=== PATIENT | male | born 1960 | race Caucasian/White ===

== ENCOUNTER 2019-08-26 17:36 | Emergency (ER) | payer SELFPAY ==
[~2019-08-26] VITALS: Ht 175.3 cm; Wt 80.9 kg
--- NOTE | 2019-08-26 19:28 | NUR ---
PT NOT IN LOBBY AT THIS TIME
--- NOTE | 2019-08-26 19:45 | NUR ---
PT TO ROOM FROM LOBBY
--- NOTE | 2019-08-26 19:53 | NUR ---
PT WITH DIFFICULTY CHANGING INTO A GOWN. I OFFERED TO HELP, PT REFUSED HELP.
[2019-08-26 20:12] LABS: BASOPHILS # (AUTO) 0.05 x10^3/uL (0-0.1); BASOPHILS % (AUTO) 1 % (0-1); EOSINOPHILS # (AUTO) 0.23 x10^3/uL (0-0.4); EOSINOPHILS % (AUTO) 3 % (1-7); LYMPHOCYTES # (AUTO) 2.46 x10^3/uL (1-3.4); LYMPHOCYTES % (AUTO) 29 % (22-44); MD NO; MEAN CORPUSCULAR HGB CONC 34.3 g/dL (33.2-36.2); MEAN CORPUSCULAR VOLUME 99.2 fL (81-97); MEAN PLATELET VOLUME 8.7 fL (7.4-10.4); MONOCYTES # (AUTO) 0.74 x10^3/uL (0.2-0.8); MONOCYTES % (AUTO) 9 % (2-9); NEUTROPHILS # (AUTO) 5.06 x10^3/uL (1.8-6.8); NEUTROPHILS % (AUTO) 59 % (42-75); PLATELET COUNT 189 x10^3/uL (130-400); RED BLOOD COUNT 5.16 x10^6/uL (4.38-5.82); RED CELL DISTRIBUTION WIDTH 13.5 % (9.4-14.8)
[2019-08-26 20:21] LABS: ANION GAP 5 mmol/L (5-15); CALCIUM 8.7 mg/dL (8.5-10.1); CHLORIDE 108 mmol/L (98-107)
[2019-08-26 20:24] LABS: ALANINE AMINOTRANSFERASE 31 U/L (12-78); ALKALINE PHOSPHATASE 119 U/L (45-117); BILIRUBIN,TOTAL 0.7 mg/dL (0.2-1.0); TOTAL PROTEIN 7.4 g/dL (6.4-8.2)
[2019-08-26 21:12] VITALS: BP 166/96
[2019-08-26] MEDS ORDERED: CEPHALEXIN 500 MG CAPSULE ONE (21:19)
[2019-08-26] MEDS ORDERED: SULFAMETH./TRIMETHOPRIM DS 800MG/160MG TABLET ONE (21:19)
[2019-08-26] MEDS ORDERED: CEPHALEXIN 500 MG CAPSULE PO ONE (21:30)
[2019-08-26] MEDS ORDERED: SULFAMETH./TRIMETHOPRIM DS 800MG/160MG TABLET PO ONE (21:30)
== END 2019-08-26 21:42 | disposition home or self-care (01) ==
LOC: ED 18:36
DX: L03.116 Cellulitis of left lower limb (principal)
CPT/HCPCS: 36415; 80053; 85025; 99284

== ENCOUNTER → 2019-11-03 | Outpatient (CLI) | payer OTHER | END | disposition home or self-care (01) | LOC: WOUND 14:25 | PROVIDERS: ATTEND Nurse Practitioner Family | DX: L97.822 Non-pressure chronic ulcer of other part of left lower leg with fat layer exposed (principal); F17.210 Nicotine dependence, cigarettes, uncomplicated | CPT/HCPCS: 11042; 99215 ==

== ENCOUNTER → 2019-11-10 | Outpatient (CLI) | payer OTHER | END | disposition home or self-care (01) | LOC: WOUND 11-06 09:19 | PROVIDERS: ATTEND Nurse Practitioner Family | DX: L97.822 Non-pressure chronic ulcer of other part of left lower leg with fat layer exposed (principal); F17.210 Nicotine dependence, cigarettes, uncomplicated | CPT/HCPCS: 97597 ==

== ENCOUNTER → 2019-11-11 | Outpatient (CLI) | payer OTHER | END | disposition home or self-care (01) | LOC: CVU 07:20 | PROVIDERS: ATTEND Nurse Practitioner Family | DX: I70.203 Unspecified atherosclerosis of native arteries of extremities, bilateral legs (principal); I77.1 Stricture of artery; L97.822 Non-pressure chronic ulcer of other part of left lower leg with fat layer exposed | CPT/HCPCS: 93925; 93970 ==

== ENCOUNTER → 2019-11-26 | Outpatient (CLI) | payer OTHER | END | disposition home or self-care (01) | LOC: WOUND 08:36 | PROVIDERS: ATTEND Podiatrist Foot & Ankle Surgery | DX: L97.822 Non-pressure chronic ulcer of other part of left lower leg with fat layer exposed (principal); I77.1 Stricture of artery; B35.3 Tinea pedis; L40.3 Pustulosis palmaris et plantaris; F17.210 Nicotine dependence, cigarettes, uncomplicated | CPT/HCPCS: 97597 ==

== ENCOUNTER → 2019-12-01 | Outpatient (CLI) | payer OTHER | END | disposition home or self-care (01) | LOC: WOUND 10:00 | PROVIDERS: ATTEND Podiatrist Foot & Ankle Surgery | DX: I70.242 Atherosclerosis of native arteries of left leg with ulceration of calf (principal); L97.221 Non-pressure chronic ulcer of left calf limited to breakdown of skin; I70.248 Atherosclerosis of native arteries of left leg with ulceration of other part of lower leg; L97.822 Non-pressure chronic ulcer of other part of left lower leg with fat layer exposed; I77.1 Stricture of artery; B35.3 Tinea pedis; L40.3 Pustulosis palmaris et plantaris; F17.210 Nicotine dependence, cigarettes, uncomplicated | CPT/HCPCS: 97597 ==